=== PATIENT | male | born 1970 | race Caucasian/White ===

== ENCOUNTER 2021-04-13 14:21 | Emergency (ER) | payer BC ==
[2021-04-13 15:10] LABS: Absolute Lymphocytes (CBC) 0.8 K/uL (0.7-4.9); Basophils % 1.1 % (0-1.3); Hematocrit 43.5 % (39.6-49.0); Lymphocytes % 19.8 % (15.3-44.8); RBC Red Blood Cell Count 4.65 M/uL (4.33-5.43)
[2021-04-13 15:18] LABS: Protime INR 1.03
[2021-04-13 15:32] LABS: ALT/SGPT 60 U/L (12-78); AST/SGOT 30 U/L (15-37); Alkaline Phosphatase 93 U/L (45-117); BUN Blood Urea Nitrogen 13 mg/dL (7-18); Bicarbonate 28 mmol/L (21-32); Bilirubin Direct 0.2 mg/dL (0-0.2); Bilirubin Total 0.6 mg/dL (0.2-1.0); Glucose Level 155 mg/dL (74-106); NT PRO-BNP 37 pg/mL (<125); Potassium 3.9 mmol/L (3.5-5.1); Protein, Total 7.5 g/dL (6.4-8.2); Sodium Level 142 mmol/L (136-145); Troponin (Emerg Dept Use Only) < 0.02 ng/mL (0.0-0.045)
[2021-04-13] MEDS ORDERED: MECLIZINE HCL 12.5 MG TAB ONE (16:02)
--- NOTE | 2021-04-13 17:25 | RAD REPORT ---
EXAM DESCRIPTION: CT - Head Brain Wo Cont - 04/13/2021 5:12 pm CLINICAL HISTORY: DIZZINESS, hypertension COMPARISON: No comparisons TECHNIQUE: Axial 5 mm thick images of the head were obtained without IV contrast. All CT scans are performed using dose optimization technique as appropriate and may include automated exposure control or mA/KV adjustment according to patient size. FINDINGS: No intracranial hemorrhage, mass, edema or shift of mid-line structures. No acute infarcti on changes seen. No abnormal extra-axial fluid collections. Ventricles are normal. Mastoid air cells and visualized portions of the paranasal sinuses are clear. No acute bony findings. IMPRESSION: Negative non-contrast CT head examination.
--- NOTE | 2021-04-13 17:27 | RAD REPORT ---
EXAM DESCRIPTION: RAD - Chest Single View - 04/13/2021 3:46 pm CLINICAL HISTORY: CHEST PAIN COMPARISON: May 2012 TECHNIQUE: AP portable chest image was obtained 04/13/2021 3:46 pm . FINDINGS: Exam is limited by portable technique and large body habitus. Lung jo are clear. No failure or volume overload. Interstitial pattern matches comparison. Heart and vasculature are normal. No measurable pleural effusion and no pneumothorax. No acute bony abnorma lity seen. No acute aortic findings suspected. IMPRESSION: No acute cardiopulmonary process. No significant change from comparison study.
--- NOTE | 2021-04-13 17:45 | ER ---
Nurse's Notes [facility] Name: Nathan Dennis Age: 50 yrs Sex: Male : 1970 Arrival Date: 04/13/2021 Time: 14:26 Bed 27 Private MD: Diagnosis: Palpitations;Dizziness and giddiness Presentation: 04/13 14:47 Chief complaint: Patient states: Dizziness that started today, also reports ph palpitations, SOB and chest discomfort, denies N/V. Coronavirus screen: Client denies travel out of the [place] in the last 14 days. At this time, the client does not indicate any symptoms associated with coronavirus-19. Ebola Screen: No symptoms or risks identified at this time. Initial Sepsis Screen: Does the patient meet any 2 criteria? No. Patient's initial sepsis screen is negative. Does the patient have a suspected source of infection? No. Patient's initial sepsis screen is negative. Risk Assessment: Do you want to hurt yourself or someone else? Patient reports no desire to harm self or others. Onset of symptoms was April 13, 2021. 14:47 Method Of Arrival: Ambulatory ph 14:47 Acuity: KEVON 3 ph Triage Assessment: 15:07 Respiratory: Onset: The symptoms/episode began/occurred today, the patient has moderate ap3 shortness of breath. Historical: - Allergies: 14:48 No Known Allergies; ph - Home Meds: 15:07 carvedilol 12.5 mg oral tab 1 tab 2 times per day [Active]; amlodipine 10 mg tab 1 tab ap3 once daily [Active]; - PMHx: 14:48 Hypertension; ph - Immunization history:: Adult Immunizations up to date, Client reports having NOT received the Covid vaccine. - Social history:: Smoking status: Patient denies any tobacco usage or history of. Patient uses alcohol, occasionally. Screenin:03 Abuse screen: Denies threats or abuse. Nutritional screening: No deficits noted. ap3 Tuberculosis screening: No symptoms or risk factors identified. Fall Risk None identified. Assessment: 15:04 General: Appears in no apparent distress. comfortable, Behavior is calm, cooperative, ap3 appropriate for age, patient states he began feeling short of breath and dizzy when he was working at his desk this afternoon. . Pain: Denies pain. Cardiovascular: Capillary refill < 3 seconds. Cardiovascular: Rhythm is regular. Respiratory: Airway is patent Breath sounds are clear bilaterally. Respiratory: Reports shortness of breath at rest Respiratory effort is even, unlabored, Respiratory pattern is regular, symmetrical. GI: No signs and/or symptoms were reported involving the gastrointestinal system. : No signs and/or symptoms were reported regarding the genitourinary system. EENT: No signs and/or symptoms were reported regarding the EENT system. Derm: No signs and/or symptoms reported regarding the dermatologic system. 16:20 Reassessment: Patient and/or family updated on plan of care and expected duration. Pain ap3 level reassessed. Patient is alert, oriented x 3, equal unlabored respirations, skin warm/dry/pink. patients mother and remain at bedside. 16:59 Reassessment: Patient states symptoms have improved. ap3 Vital Signs: 14:47 BP 154 / 80; Pulse 78; Resp 18; Temp 97.9; Pulse Ox 98% on R/A; ph 15:21 BP 132 / 80; Pulse 68; Resp 16; Pulse Ox 98% on R/A; Pain 0/10; ap3 15:43 BP 128 / 75 LA Supine (auto/); Pulse 71; Resp 18; Pulse Ox 99% on R/A; ap3 15:45 BP 148 / 95 LA Sitting (auto/); Pulse 76; Resp 19; Pulse Ox 99% on R/A; Pain 0/10; ap3 15:48 BP 135 / 91 LA Standing (auto/); Pulse 70; Resp 18; Pulse Ox 99% on R/A; Pain 0/10; ap3 17:21 BP 128 / 72; Pulse 65; Resp 16; Pulse Ox 97% on R/A; Pain 0/10; ap3 ED Course: 14:26 Patient arrived in ED. ds1 14:48 Triage completed. ph 14:49 Arm band placed on Patient placed in an exam room, on a stretcher. ph 14:52 Ellen Valiente, RAMBO is Primary Nurse. ap3 15:08 Patient has correct armband on for positive identification. Bed in low position. Call ap3 light in reach. Side rails up X2. Adult w/ patient. court monitor on. Pulse ox on. NIBP on. Door closed. Noise minimized. 15:09 Inserted saline lock: 20 gauge in right antecubital area, using aseptic technique. mt Blood collected. 15:13 Kirk Stevens PA is PHCP. cp 15:13 Stew Lóepz MD is Attending Physician. cp 15:21 Pt visited by mother, . ap3 15:29 Nurse Practitioner and/or Physician Meal Miller to see patient. ap3 15:46 XRAY Chest (1 view) In Process Unspecified. EDMS 17:[address] via wheelchair. ap3 17:12 CT Head Brain wo Cont In Process Unspecified. EDMS 17:16 Patient moved back from CT. ap3 17:44 Brenden Sanchez MD is Referral Physician. cp 18:15 No provider procedures requiring assistance completed. IV discontinued, intact, ap3 bleeding controlled, No redness/swelling at site. Pressure dressing applied. Administered Medications: 15:50 Drug: Meclizine 25 mg Route: PO; ap3 18:07 Follow up: Response: No adverse reaction; Nausea is decreased ap3 Outcome: 17:44 Discharge ordered by MD. cp 18:16 Discharged to home ambulatory, with family. ap3 18:16 Condition: good 18:16 Discharge instructions given to patient, family, Instructed on discharge instructions, follow up and referral plans. medication usage, Demonstrated understanding of instructions, follow-up care, medications, Prescriptions given X 1. 18:17 Patient left the ED. ap3 Signatures: Dispatcher [employer] [facility] Meredith Barron ds1 Jillian Barrios, RN RN Kirk Stevens PA PA cp Thompson, Moriah mt Prokisch, Amanda RN RN ap3
--- NOTE | 2021-04-13 17:45 | EDPHYS ---
Physician Documentation [facility] Name: Nathan Dennis Age: 50 yrs Sex: Male : 1970 Arrival Date: 04/13/2021 Time: 14:26 Bed 27 Private MD: ED Physician Stew López HPI: 04/13 13:30 This 50 yrs old Male presents to ER via Ambulatory with complaints of cp Shortness Of Breath, Dizziness. 13:30 The patient presents with a history of heart skipping beats. cp 13:30 Context: The symptoms occur while seated at computer desk. Onset: The symptoms/episode cp began/occurred today. Duration: The patient or guardian reports a single episode, that is now resolved. The patient presents with feeling faint, lightheadedness. Associated signs and symptoms: Pertinent negatives: abdominal pain, blurred vision, chest pain, confusion, diaphoresis, focal weakness, numbness, syncope. Severity of symptoms: in the emergency department the symptoms have improved markedly. Patient's baseline: Neuro: alert and fully oriented, Motor: no deficits, Ambulation: walks without assistance, Speech: normal. Patient denies any chest pain and reports working outside earlier today with no complaints of chest pain, dizziness, and/or palpitations. Historical: - Allergies: 14:48 No Known Allergies; ph - Home Meds: 15:07 carvedilol 12.5 mg oral tab 1 tab 2 times per day [Active]; amlodipine 10 mg tab 1 tab ap3 once daily [Active]; - PMHx: 14:48 Hypertension; ph - Immunization history:: Adult Immunizations up to date, Client reports having NOT received the Covid vaccine. - Social history:: Smoking status: Patient denies any tobacco usage or history of. Patient uses alcohol, occasionally. ROS: 13:35 Constitutional: Negative for body aches, chills, fever, poor PO intake. cp 13:35 Eyes: Negative for injury, pain, redness, and discharge. cp 13:35 ENT: Negative for ear pain, sore throat, difficulty swallowing, difficulty handling secretions. 13:35 Cardiovascular: Positive for palpitations, Negative for chest pain, edema. 13:35 Respiratory: Positive for shortness of breath, Negative for cough, wheezing. 13:35 Abdomen/GI: Negative for abdominal pain, nausea, vomiting, and diarrhea. 13:35 Neuro: Positive for dizziness, Negative for altered mental status, headache, syncope, weakness. 13:35 All other systems are negative. Exam: 13:40 Constitutional: The patient appears in no acute distress, alert, awake, cp non-diaphoretic, non-toxic, well developed, well nourished. 13:40 Head/Face: Normocephalic, atraumatic. cp 13:40 Eyes: Periorbital structures: appear normal, Pupils: equal, round, and reactive to light and accomodation, Extraocular movements: intact throughout, Conjunctiva: normal, no exudate, no injection, Sclera: no appreciated abnormality, Lids and lashes: appear normal, bilaterally. 13:40 ENT: External ear(s): are unremarkable, Ear canal(s): cerumen impaction, that is moderate, occluding the right ear canal, TM's: Examination of the other ear shows no obvious abnormality, Nose: is normal, Mouth: is normal, Posterior pharynx: Airway: no evidence of obstruction, patent. 13:40 Neck: ROM/movement: is normal, is supple, without pain, no range of motions limitations. 13:40 Chest/axilla: Inspection: normal, Palpation: is normal, no crepitus, no tenderness. 13:40 Cardiovascular: Rate: normal, Rhythm: regular, Heart sounds: murmur, not appreciated, Edema: is not appreciated, JVD: is not appreciated. 13:40 Respiratory: the patient does not display signs of respiratory distress, Respirations: normal, no use of accessory muscles, no retractions, labored breathing, is not present, Breath sounds: are clear throughout, no decreased breath sounds, no stridor, no wheezing. 13:40 Abdomen/GI: Inspection: abdomen appears normal, Palpation: abdomen is soft and non-tender, in all quadrants. 13:40 Neuro: Orientation: to person, place \T\ time. Mentation: is normal, Cerebellar function: is grossly normal, Motor: moves all fours, strength is normal, Sensation: is normal. 15:00 ECG was reviewed by the Attending Physician. cp Vital Signs: 14:47 BP 154 / 80; Pulse 78; Resp 18; Temp 97.9; Pulse Ox 98% on R/A; ph 15:21 BP 132 / 80; Pulse 68; Resp 16; Pulse Ox 98% on R/A; Pain 0/10; ap3 15:43 BP 128 / 75 LA Supine (auto/); Pulse 71; Resp 18; Pulse Ox 99% on R/A; ap3 15:45 BP 148 / 95 LA Sitting (auto/); Pulse 76; Resp 19; Pulse Ox 99% on R/A; Pain 0/10; ap3 15:48 BP 135 / 91 LA Standing (auto/); Pulse 70; Resp 18; Pulse Ox 99% on R/A; Pain 0/10; ap3 17:21 BP 128 / 72; Pulse 65; Resp 16; Pulse Ox 97% on R/A; Pain 0/10; ap3 MDM: 15:33 Patient medically screened. 17:43 Data reviewed: vital signs, nurses notes, lab test result(s), EKG, radiologic studies, cp CT scan, plain films. 17:43 Test interpretation: by ED physician or midlevel provider: ECG, plain radiologic cp studies. Counseling: I had a detailed discussion with the patient and/or guardian regarding: the historical points, exam findings, and any diagnostic results supporting the discharge/admit diagnosis, lab results, radiology results, the need for outpatient follow up, a food and beverage intern, to return to the emergency department if symptoms worsen or persist or if there are any questions or concerns that arise at home. 04/13 14:53 Order name: Basic Metabolic Panel; Complete Time: 15:55 ap3 04/13 15:55 Interpretation: Normal except: CL 109; GLUC 155; GFR 74. 04/13 14:53 Order name: CBC with Diff; Complete Time: 15:55 ap3 04/13 16:48 Interpretation: Normal except: WBC 4.00. 04/13 14:53 Order name: LFT's; Complete Time: 15:55 ap3 04/13 16:48 Interpretation: Reviewed. 04/13 14:53 Order name: Magnesium; Complete Time: 15:55 ap3 04/13 14:53 Order name: NT PRO-BNP; Complete Time: 15:55 ap3 04/13 14:53 Order name: PT-INR; Complete Time: 15:55 ap3 04/13 14:53 Order name: Troponin (emerg Dept Use Only); Complete Time: 15:55 ap3 04/13 16:49 Interpretation: Within normal limits: TROPED < 0.02. 04/13 14:53 Order name: XRAY Chest (1 view); Complete Time: 17:30 ap3 04/13 17:30 Interpretation: Report review. 04/13 14:53 Order name: EKG; Complete Time: 14:54 ap3 04/13 14:53 Order name: Cardiac monitoring; Complete Time: 15:02 ap3 04/13 14:53 Order name: EKG - Nurse/Tech; Complete Time: 15:02 ap3 04/13 14:53 Order name: IV Saline Lock; Complete Time: 15:02 ap3 04/13 15:34 Order name: CT Head Brain wo Cont; Complete Time: 17:30 cp 04/13 17:31 Interpretation: Report reviewed. 04/13 14:53 Order name: Labs collected and sent; Complete Time: 15:02 ap3 04/13 14:53 Order name: O2 Per Protocol; Complete Time: 15:02 ap3 04/13 14:53 Order name: O2 Sat Monitoring; Complete Time: 15:02 ap3 04/13 15:33 Order name: Orthostatics; Complete Time: 16:17 cp EC:00 Rate is 71 beats/min. Rhythm is regular. CO interval is normal. QRS interval is cp prolonged at 114 msec. QT interval is normal. T waves are Inverted in lead aVR. Interpreted by me. Reviewed by me. Administered Medications: 15:50 Drug: Meclizine 25 mg Route: PO; ap3 18:07 Follow up: Response: No adverse reaction; Nausea is decreased ap3 Disposition: 04/13/21 17:44 Discharged to Home. Impression: Palpitations, Dizziness and giddiness. - Condition is Stable. - Discharge Instructions: Dizziness, Holter Monitoring, Palpitations. - Prescriptions for Meclizine 25 mg Oral Tablet - take 1 tablet by ORAL route every 8 hours As needed; 30 tablet. - Medication Reconciliation Form, Thank You Letter, Antibiotic Education, Prescription Opioid Use form. - Follow up: Brenden Sanchez MD; When: 2 - 3 days; Reason: Recheck today's complaints. - Problem is new. - Symptoms have improved. Signatures: Dispatcher [employer] EDJillian Nova RN RN ph Page, Kirk, PA PA cp Ellen Valiente, RN RN ap3 Corrections: (The following items were deleted from the chart) 18:17 17:44 04/13/2021 17:44 Discharged to Home. Impression: Palpitations; Dizziness and ap3 giddiness. Condition is Stable. Forms are Medication Reconciliation Form, Thank You Letter, Antibiotic Education, Prescription Opioid Use. Follow up: Brenden Sanchez; When: 2 - 3 days; Reason: Recheck today's complaints. Problem is new. Symptoms have improved. cp
[2021-04-13 18:39] VITALS: TEMP 97.9
[2021-04-13 18:48] VITALS: BP 128/72; O2SAT 97
--- NOTE | 2021-04-14 07:52 | EKG ---
Test Date: 2021-04-13 Test Time: 14:50:40 Plant Accountant: CECILIO MEASUREMENT RESULTS: Intervals: Rate: 71 LA: 150 QRSD: 114 QT: 394 QTc: 428 [place]: P: 7 LA: 150 QRS: 46 T: 29 INTERPRETIVE STATEMENTS: Normal sinus rhythm Low voltage QRS Cannot rule out Anterior infarct, age undetermined Abnormal ECG Compared to ECG 05/15/2012 09:47:27 Low QRS voltage now present Myocardial infarct finding now present Electronically Signed On 04-14-21 07:50:37 CDT by Brenden Sanchez
== END 2021-04-13 18:17 | disposition home or self-care (01) ==
LOC: ER 14:21
DX: R00.2 Palpitations (principal); I10 Essential (primary) hypertension
CPT/HCPCS: 36415; 70450; 71045; 80048; 80076; 83735; 83880; 84484; 85025; 85610; 93005; 99285

== ENCOUNTER 2023-05-26 22:59 | Emergency (ER) | payer BC ==
--- OUTSIDE RECORDS SUMMARY | 2023-05-26 23:02 | XMS REPORT | Continuity of Care Document ---
:1970 Author Organization [facility] t Address [address] [facility] [address] [place] [address] Care Team Providers Name Role Phone Atiya BARROSO, Prieto Alexis Primary Care Physician Antione Alejandro MD Attending Clinician [phone] Antione Alejandro Attending Clinician Unavailable Antione Alejandro Admitting Clinician Unavailable Payers Payer Name Policy Type Policy Number Effective Date Expiration Date S ource Problems This patient has no known problems. Allergies, Adverse Reactions, Alerts Allergy Allergy Status Severity Reaction(s) Onset Inactive Treating Comm ents Source Name Type Date Date Clinician No Known DA Active U [facility] Allergie 6-13 Clear s 00:00: Winn 00 [facility] Social History Social Habit Start Date Stop Date Quantity Comments Source Gender identity [facility] Sex Assigned At [birth year] [facility] 00:00:00 00:00:00 Smoking Status Start Date Stop Date Source Tobacco smoking consumption unknown [facility] Medications This patient has no known medications. Procedures Procedure Date / Time Performed Performing Clinician Sourc e XR CERVICAL SPINE 2 OR 2023-05-14 20:22:00 Antione Alejandro [facility] 3 [facility] Cristi Plan of Care Planned Activity Planned Date Details Comments Source Future Scheduled 2023-05-14 Screening for [facility] Test 16:41:22 malignant neoplasm of colon (procedure) [code = 350086940] Future Scheduled 2023-05-14 Screening for [facility] Test 16:41:22 malignant neoplasm of colon (procedure) [code = 058170503] Future Scheduled 2023-05-14 Screening for [facility] Test 16:41:22 malignant neoplasm of colon (procedure) [code = 759942382] Future Scheduled 2023-05-14 COVID-19 VACCINE [facility] 16:41:22 (#1) [code = COVID-19 VACCINE (#1)] Future Scheduled 2023-05-14 [facility] 16[facility]22 screening (procedure) [code = 393823938] Future Scheduled 2023-05-14 Screening for [facility] Test 16:41:22 malignant neoplasm of colon (procedure) [code = 767107716] Future Scheduled 2023-05-14 Screening for [facility] Test 16:41:22 malignant neoplasm of colon (procedure) [code = 217163696] Future Scheduled 2023-05-14 SHINGLES VACCINES [facility] 16:41:22 (1 of 2) [code = SHINGLES VACCINES (1 of 2)] Future Scheduled 2023-05-14 INFLUENZA VACCINE [facility] Test 16:41:22 [code = INFLUENZA VACCINE] Encounters Start End Encounter Admission Attending Care Care Encounter Source Date/Time Date/Time Type Type Clinicians Facility Department ID 2023-05-14 2023-05-14 Hospital [facility], 1.2.840.1 [id number] [facility] 15:00:00 23:59:00 Encounter Antione [id number] 957 [address] Cristi 3.430.2.7 Hospi ta .[id number] l .8 2023-05-14 2023-05-14 Transcribe [facility], 1.2.840.1 [id number] [facility] 00:00:00 00:00:00 Orders Antione [id number] Crist[place] 3.430.2.7 Hospi ta .[id number] l .8 2023-05-14 2023-05-14 Outpatient LEOLA, [facility] [id number] [place] 00:00:00 00:00:00 ANTIONE [address] 2023-05-01 2023-05-01 Outpatient UVALDO AlejandroCL LABO [id number] [facility] 15:51:00 15:51:00 Antione 42 [facility] 2023-05-01 2023-05-01 Outpatient EL Leola HCATO SURG [id number] [facility] 06:06:00 06:06:00 Antione [facility] Results Test Description Test Time Test Comments Results Result Comments Source BASIC METABOLIC PANEL 2023-04-25 18:44:00 Test Item Value Reference Range Interpretation Comme nts SODIUM (test code = NA) 144 mmol/L 136-145 N POTASSIUM (test code = K) 4.0 mmol/L 3.5-5.1 N CHLORIDE (test code = CL) 105.0 mmol/L 98-107 N CARBON DIOXIDE (test code = 28.6 mmol/L 21-32 N CO2) GLUCOSE (test code = GLU) 131 mg/dL 70-110 H BLOOD UREA NITROGEN (test 23 mg/dL 7-18 H code = BUN) GLOMERULAR FILTRATION RATE 87.9 >60 T he Glomerular Filtration Rate (test code = GFR) is a calcu lated parameterbased on serum Creati nine, patient age and sex. GFR va luesless than 60 mL/min/1.73 squ are meters are indicative ofCh ronic Kidney Disease. Values less than 15 mL/min/1.73squa re meters indicate Kidney failure. The calculation for GFR is based on the CKD-EPI (20 21) calculation. This formulais race indifferent and is the preet mmended formula for GFRby the [facility] for Adults.The GFR will not calcul ate if the sex is unknown or if t hepatient's age is <18 years. CREATININE (test code = 1.02 mg/dL 0.55-1.30 N CREAT) CALCIUM (test code = CA) 8.9 mg/dL 8.2-10.1 N HEPATIC FUNCTION [id number] 18:44:00 Test Item Value Reference Range Interpretation Comments TOTAL PROTEIN (test code = PROT) 6.8 g/dL 6.4-8.2 N ALBUMIN (test code = ALB) 4.2 g/dL 3.4-5.0 N GLOBULIN (test code = GLOB) 2.6 g/dL 2.2-4.2 N BILIRUBIN TOTAL (test code = BILT) 0.70 mg/dL 0.2-1.00 N BILIRUBIN DIRECT (test code = 0.20 mg/dL 0-0.2 N BILD) SGOT/AST (test code = AST) 23.0 U/L 15-37 N SGPT/ALT (test code = ALT) 38.0 U/L 12-78 N ALKALINE PHOSPHATASE TOTAL (test 70 U/L 46-116 N code = ALKP) ALBUMIN/GLOBULIN RATIO (test code 1.6 0.7-2.0 N = A/G) PROTHROMBIN [id number] 18:13:00 Test Item Value Reference Range Interpretation Comments PROTHROMBIN TIME 13.3 secs 9.4-12.5 H Please note new normal PATIENT (test code = range. PTP) INTERNATIONAL NORMAL 1.18 <2.0 RECOMME NDED THERAPEUTIC RATIO (test code = RANGE FOR ORAL INR) ANTICOAGULANTTR EATMENT: CONDITION INRPr ophylaxis of venous throm bosis in 2.0 - 3.0 high- risk medical or surg ical patientsTreatme nt of venous thrombos is 2.0 - 3.0Prevention o f embolism 2.0 - 3.0Prevention o f recurrent embol ism, or 3.0 - 4.5 patie nts with mechanical pros thetic intravascular v donaldson IS PATIENT ON ANTICOAGULANTS ? [facility] been notified if Patient is on Heparin Drip? NOTHROMBOPLASTIN TIME [id number] 18:13:00 Test Item Value Reference Range Interpretation Comments PTT ACTIVATED (test 28.0 secs 25.1-36.5 N Please n ote new code = APTT) normal range. IS PATIENT ON ANTICOAGULANTS ? [facility] been notified if Patient is on Heparin Drip? NOCBC W/AUTO [id number] 17:39:00 Test Item Value Reference Range Interpretation Comments WHITE BLOOD CELL (test code = WBC) 4.0 K/mm3 5.7-10.5 L RED BLOOD CELL (test code = RBC) 3.94 M/mm3 4.2-5.4 L HEMOGLOBIN (test code = HGB) 12.0 g/dL 12-16 N HEMATOCRIT (test code = HCT) 34.8 % 37-47 L MEAN CELL VOLUME (test code = MCV) 88 fL 80-98 N MEAN CELL HGB (test code = MCH) 30.5 pg 27-34 N MEAN CELL HGB CONCENTRATION (test 34.5 g/dL 30.8-34.1 H code = MCHC) RED CELL DISTRIBUTION WIDTH (test 16.4 % 11-16 H code = RDW) PLT (test code = PLT) 166 K/mm3 130-400 N MEAN PLATELET VOLUME (test code = 10.6 fL 8.9-12.1 N MPV) NEUTROPHIL % (test code = NT%) 56.8 % 45-70 N LYMPHOCYTE % (test code = LY%) 31.1 % 20-40 N MONOCYTE % (test code = MO%) 9.5 % 3-10 N EOSINOPHIL % (test code = EO%) 1.8 % 1-5 N BASOPHIL % (test code = BA%) 0.5 % 0.0-1.1 N NEUTROPHIL # (test code = NT#) 2.27 K/mm3 2.00-7.50 N LYMPHOCYTE # (test code = LY#) 1.24 K/mm3 1.50-4.00 L MONOCYTE # (test code = MO#) 0.38 K/mm3 0.2-0.8 N EOSINOPHIL # (test code = EO#) 0.07 K/mm3 0.04-0.4 N BASOPHIL # (test code = BA#) 0.02 K/mm3 0.02-0.10 N MANUAL DIFF REQUIRED (test code = NO MANUAL DIFF MDIFF) NUCLEATED RED BLOOD CELL (test 0 % 0-0 N code = NRBC) Notes Date/Time Note Provider Source 2023-05-01 06:56:00-00:00 [facility] ([facility]) DT Operative Note REPORT#:[id number] REPORT STATUS: Signed DATE:05/01/23 TIME: 655 PATIENT: DANIEL SHEPARD IV UNIT #: [id number] ROOM/BED: : 69 AGE: 52 SEX: M ATTEND: Piyush Alejandro MD ADM AUTHOR: Antione Alejandro MD * ALL edits or amendments must be made on the el [employer]/computer document * Operative Report Operative Note Note: OPERATIVE DICTATION DATE OF SURGERY: 05/01/2023 PRE-OPERATIVE DIAGNOSIS: Left C7 radiculopathy POST OPERATIVE DIAGNOSIS: Left C7 radiculopathy NAME OF PROCEDURE: 1) C6-7 a nterior cervical discectomy and fusion; 2) Anterior cervical instrumentation/plating (2 vert ebral levels); 3) Interbody graft/cage placement; 4) Use of operative microscope for mi crodissection SURGEON: Antione Alejandro MD ASSISTANTS: JEWEL Yang ANESTHESIA TYPE: GETA FINDINGS: Cervical disc herniation with resultan t stenosis SPECIMENS REMOVED: None EBL:25 cc FLUIDS: see Anesthesia record BLOOD PRODUCTS: see Anesthesia record OUTPUT: see Anesthesia record COMPLICATIONS: None DISPOSITION/CONDITION: Extubated/stable to PACU IMPLANTS: [place] [id number] (7 degree) [place] anterior cervical plte - 18mm Anterior cervical screws - 4.0x16mm (x2); 4.0x14 mm (x2) JUSTIFICATION FOR PROCEDURE: Patient is a pleasant 52 year old man wi th a left C6-7 HNP with severe left C7 radiculopathy refractory to all conservative man agement with a transient response to a targeted left C6-7 NRB. After discussion of risks, benefits, and alternatives including but not limited to bl eeding, pain, infection, scarring, injury to neural elements with resulta nt weakness/numbness/ incontinence/paralysis, spin al fluid leak, need for further surgery, persistent symptoms, dysphagia, hoarsen ess of voice, neck hematoma or vascular injury, and risk of general anesthesia the patient agreed to proceed with surgery and informed consent was obtained. PROCEDURE IN DETAIL: The patient was taken to e operating room where a time out was performed according to hospital protocol . Lines and monitors were placed by the anesthesia t eam and nursing staff. Neuromonitoring leads were placed by the Neuromonitoring team. T he patient was placed under general anesthesia and intubated by the anesthesia team. A small shoulder bump was placed in beneath the scapula, and the head was placed in a donut. Preoperative fluoroscopy was used to identify the appropriate disk space - this was marked with a surgical marker. Following universal timeout, the patient's neck was prepped and draped in usual sterile fashion. The skin was opened then sharply in a transverse manner across the skin c rease with a #10 blade. Subcutaneous dissection was carried out with mon opolar cautery. The platysma was sharply dissected in a transverse f ashion with Metzenbaum scissors and hemostasis was obtained with bipola r cautery. An avascular plane was then developed medial to the carotid s jaswant and lateral to the hypopharynx with Metzenbaum scissors. Clowards w ere then used to identify the prevertebral fascia, which was then cleared of all soft tissue using blunt dissection. Spinal needle was placed in the presumed C6-7 disk space, and this was confirmed with lat eral fluoroscopy. The longus colli were then elevated bilaterally with the us e of Bovie cautery, and a self-retaining retractor was then deployed. Following this, the drill wa s used to drill off the anterior osteophytes at the level of interest. Next appropriately sized Demorest pins were then p laced in the cephalad, intervening, and caudal vertebral bodies under direct fluoroscopic guidance. Gentle distraction was placed across the C6-7 disk space, and an annulotomy was perfo rmed with a #15 blade. A straight curette was then used to elevate the ca rtilaginous endplate off the bony endplates to the depth of the disk spac e. Disk was removed with the use of 1- and 2-mm Kerrison rongeurs and pituitary rongeurs. The posterior osteophytectomy was then performed with the use of a 3-mm matchstick drill bit and 2-mm Kerrison rongeurs. A nerve hook was then used to slide under the posterior longitudinal ligament. Remaining disc fragments, an nulus, and posterior longitudinal ligament were then resected to the joints bilat erally. The nerve hook was then used to freely pass over both foramen. The endplates were then prepped for fusion with the use of the drill. Meticulous hemostasis was then obtained in the i ntervertebral spaces using Floseal irrigant and gentle tamponade. Next, an appropriately sized trial was then gently malleted into place in each interver tebral space. At each level, appropriate size and placement was then confirme d with lateral fluoroscopy. Autograft saved from drilling of the endplates w as used to pack each titanium graft. Once this was done, interbody graft were then hammered into place an d slightly countersunk at each level. The Demorest p ins were removed and bone wax smeared into the pin holes. An appropriate size anterior cervical plate was then placed over the disk space. Placement was c onfirmed under lateral fluoroscopy and the plate secured using temporar y pins. Next, under AP fluoroscopy the orientation of the plate was assessed. Using this information, final adjustments were made and maintained with the temporary pins. Under lateral fluoroscopy, transport pilot holes were dril led using hand drills of increasing size in the open plate apertures. These transport pilot holes were followed by appropriately sized screws, drilled into place u nder lateral fluoroscopy. The temporary pins were then removed and, in similar fashion, the remaining plate apertures were hand drilled and appropriately si zed screws placed, all under lateral fluoroscopy. All screws were torque tigh tened and the plate locking mechanisms deployed to constitute the anterior c ervical fixation. AP and lateral fluoroscopy confirmed excellent placemen t of the hardware. Self-retaining retractors were removed, and the microscope was brought out of place. The wound was flooded with bacitracin irrigation . All small bleeders were coagulated with bipolar cautery. T he subcutaneous tissue was then closed with 3-0 Vicryl, including the p latysma. The skin was closed with 4-0 Monocryl, followed by glue and a dhesive strips. Sterile dressing was then placed over the incisi on. At the conclusion of the case, all counts were c orrect x2. The patient was then extubat ed and transferred to the PACU in stable condition. Electronically Signed by Antione Alejandro MD on 0 05/01/23 at [address] [facility] #:[id number] END OF REPORT 2023-04-24 17:00:00-00:00 [id number] [place] [id number] PATIENT NAME: DANIEL SHEPARD IV ADMIT DA TE: ACCOUNT NO: [id number] ROOM NO: AGE: 52 REPORT TYPE: ELECTROCARDIOGRAM SEX: M ADMITTING PHYSICIAN: ATTENDING PHYSICIAN:Antione Alejandro MD Order: [id number] Test Reason : PRE OP CLEARANCE HTN Test Date/Time Stamp: SunApr 24 2023 17:00:19 Blood Pressure : / mmHG Vent. Rate : 061 BPM Atrial Rate : 061 BPM P-R Int : 194 ms QRS Dur : 114 ms QT Int : 398 ms P-R-T Axes : -07 053 027 degree s QTc Int : 400 ms Normal sinus rhythm Normal ECG No previous ECGs available Confirmed by GUCCI VALDOVINOS MD ([id number]) on 04/27/2023 6:17:12 PM Referred By: Antione Alejandro Confirmed by:GUCCI VALDOVINOS MD PATIENT NAME: DANIEL SHEPARD MAKI
[2023-05-27 00:38] LABS: Absolute Lymphocytes (CBC) 1.3 K/uL (0.7-4.9); Hematocrit 39.8 % (39.6-49.0); MCV 89.4 fL (80-100); RBC Red Blood Cell Count 4.45 M/uL (4.33-5.43)
[2023-05-27 00:58] LABS: Bilirubin Direct 0.1 mg/dL (0-0.2); Bilirubin Indirect, Calculated 0.5 mg/dL (0.2-0.8); Bilirubin Total 0.6 mg/dL (0.2-1.0); Magnesium 2.1 mg/dL (1.6-2.4); Potassium 3.8 mEq/L (3.5-5.1); Protein, Total 7.1 g/dL (6.4-8.2); Troponin High Sensitivity 4.6 pg/mL (<58.9)
--- NOTE | 2023-05-27 01:21 | EDPHYS ---
Physician Documentation [facility] Name: Nathan Dennis Age: 52 yrs Sex: Male : 1970 Arrival Date: 05/26/2023 Time: 22:59 Bed 18 Private MD: ED Physician Nikita Davis HPI: 05/26 23:55 This 52 yrs old Male presents to ER via Ambulatory with complaints of Stiff Neck, rt Shoulder Pain, Dizziness. 23:55 Patient had an ACDF performed on 620. The patient states that about 2 weeks following rt that, he had started having intermittent palpitations. He does have a stress test scheduled in the office because of the symptoms. The patient states that today, he had a brief episode of disorientation that is since resolved. He states that he has had intermittent chest tightness but denies of chest pain. States that he has no pain currently. Patient denies other acute complaints at this time, symptoms are moderate severity, no other aggravating or alleviating factors.. Historical: - Allergies: 23:14 No Known Allergies; kd3 - PMHx: 23:14 Hypertension; kd3 - Immunization history:: Adult Immunizations up to date. - Social history:: Smoking status: Patient denies any tobacco usage or history of. - Family history:: not pertinent. ROS: 23:55 Constitutional: Negative for fever, chills, and weight loss, Cardiovascular: Negative rt for chest pain, palpitations, and edema, Respiratory: Negative for shortness of breath, cough, wheezing, and pleuritic chest pain, Abdomen/GI: Negative for abdominal pain, nausea, vomiting, diarrhea, and constipation, Skin: Negative for injury, rash, and discoloration, Neuro: Negative for headache, weakness, numbness, tingling, and seizure, Psych: Negative for depression, anxiety, suicide ideation, homicidal ideation, and hallucinations. 23:55 Cardiovascular: Positive for palpitations, Negative for chest pain. Exam: 23:55 Constitutional: This is a well developed, well nourished patient who is awake, alert, rt and in no acute distress. Head/Face: Normocephalic, atraumatic. Chest/axilla: Normal chest wall appearance and motion. Nontender with no deformity. No lesions are appreciated. Cardiovascular: Regular rate and rhythm with a normal S1 and S2. No gallops, murmurs, or rubs. Normal PMI, no JVD. No pulse deficits. Respiratory: Lungs have equal breath sounds bilaterally, clear to auscultation and percussion. No rales, rhonchi or wheezes noted. No increased work of breathing, no retractions or nasal flaring. Abdomen/GI: Soft, non-tender, with normal bowel sounds. No distension or tympany. No guarding or rebound. No evidence of tenderness throughout. Skin: Warm, dry with normal turgor. Normal color with no rashes, no lesions, and no evidence of cellulitis. MS/ Extremity: Pulses equal, no cyanosis. Neurovascular intact. Full, normal range of motion. Neuro: Awake and alert, GCS 15, oriented to person, place, time, and situation. Cranial nerves II-XII grossly intact. Motor strength 5/5 in all extremities. Sensory grossly intact. Cerebellar exam normal. Normal gait. Psych: Awake, alert, with orientation to person, place and time. Behavior, mood, and affect are within normal limits. 23:55 ECG was reviewed by the Attending Physician. Vital Signs: 23:12 Pulse 71; Resp 16; Temp 97.7(O); Pulse Ox 100% ; Weight 127.46 kg; Height 6 ft. 0 in. ; kd3 23:17 BP 124 / 81; kd3 23:45 BP 136 / 100; Pulse 62; Resp 20 S; Pulse Ox 98% on R/A; ha1 05/27 00:29 BP 112 / 70; Pulse 65; Resp 18 S; Pulse Ox 98% on R/A; ha1 01:30 BP 118 / 71; Pulse 61; Resp 15 S; Pulse Ox 98% on R/A; ha1 05/26 23:12 Body Mass Index 38.11 (127.46 kg, 182.88 cm) kd3 MDM: 05/26 23:33 Patient medically screened. rt 05/27 01:21 Differential diagnosis: Dysrhythmia, electrolyte disturbance, thyrotoxicosis, rt dehydration, acute coronary syndrome. Data reviewed: vital signs. Consideration of Admission/Observation Escalation of care including admission/observation considered. Given chronicity of symptoms with negative troponin, 1 set of enzymes is sufficient to rule out any acute coronary syndrome. Test considered but Not performed: CT: Symptoms are not consistent with a pulmonary embolism, CT angiogram not indicated. Care significantly affected by the following chronic conditions: Hypertension. Counseling: I had a detailed discussion with the patient and/or guardian regarding: the historical points, exam findings, and any diagnostic results supporting the discharge/admit diagnosis, lab results, radiology results, the need for outpatient follow up. 05/26 23:43 Order name: Basic Metabolic Panel; Complete Time: 01:10 rt 05/26 23:43 Order name: CBC with Diff; Complete Time: : rt 05/26 23:43 Order name: LFT's; Complete Time: : rt 05/26 23:43 Order name: Magnesium; Complete Time: : rt 05/26 23:43 Order name: Troponin HS; Complete Time: : rt 05/26 23:48 Order name: TSH; Complete Time: : rt 05/26 23:43 Order name: XRAY Chest (1 view) rt 05/26 23:43 Order name: EKG; Complete Time: 23:44 rt 05/26 23:43 Order name: Cardiac monitoring; Complete Time: 00:08 rt 05/26 23:43 Order name: EKG - Nurse/Tech; Complete Time: 00:08 rt 05/26 23:43 Order name: IV Saline Lock; Complete Time: 00:28 rt 05/26 23:43 Order name: Labs collected and sent; Complete Time: 00:28 rt 05/26 23:43 Order name: O2 Per Protocol; Complete Time: 00:08 rt 05/26 23:43 Order name: O2 Sat Monitoring; Complete Time: 00:08 rt EC/15 23:55 Rate is 63 beats/min. Rhythm is regular, Normal Sinus Rhythm with No ectopy. QRS Archer rt is Normal. CA interval is normal. QRS interval is normal. QT interval is normal. No Q waves. T waves are Normal. No ST changes noted. Interpreted by me. Administered Medications: No medications were administered Disposition Summary: 05/27/23 01:20 Discharge Ordered Location: Home rt Problem: new rt Symptoms: have improved rt Condition: Stable rt Diagnosis - Palpitations rt Followup: rt - With: Private Physician - When: 2 - 3 days - Reason: Discharge Instructions: - Discharge Summary Sheet rt - Palpitations rt Forms: - Medication Reconciliation Form rt - Thank You Letter rt - Antibiotic Education rt - Prescription Opioid Use rt - Patient Portal Instructions rt Signatures: [facility] Ramona Noonan RN RN kd3 Nikita Davis MD MD rt
--- NOTE | 2023-05-27 01:21 | ER ---
Nurse's Notes [facility] Name: Nathan Dennis Age: 52 yrs Sex: Male : 1970 Arrival Date: 05/26/2023 Time: 22:59 Bed 18 Private MD: Diagnosis: Palpitations Presentation: 05/26 23:14 Coronavirus screen: Vaccine status: Patient reports receiving the 2nd dose of the covid kd3 vaccine. Ebola Screen: No symptoms or risks identified at this time. Initial Sepsis Screen: Does the patient meet any 2 criteria? No. Patient's initial sepsis screen is negative. Does the patient have a suspected source of infection? No. Patient's initial sepsis screen is negative. Risk Assessment: Do you want to hurt yourself or someone else? Patient reports no desire to harm self or others. Onset of symptoms was May 26, 2023. 23:14 Method Of Arrival: Ambulatory kd3 23:15 Chief complaint: Patient states: My neck and back feels tight. 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 I feel worried. I do not feel chest pain but i feel dizzy. On 05/01 i have surgery of C5 and C6. I am not sure what is going on but i have been feeling like this for a couple of weeks. 23:15 Acuity: KEVON 3 kd3 Triage Assessment: 23:14 General: Appears uncomfortable, Behavior is calm, cooperative. Pain: Complains of pain kd3 in back and neck. Neuro: Level of Consciousness is awake, alert, obeys commands, Oriented to person, place, time, situation. Neuro: Reports dizziness. Respiratory: Airway is patent Trachea midline Respiratory effort is even, unlabored, Respiratory pattern is regular, symmetrical. Historical: - Allergies: 23:14 No Known Allergies; kd3 - PMHx: 23:14 Hypertension; kd3 - Immunization history:: Adult Immunizations up to date. - Social history:: Smoking status: Patient denies any tobacco usage or history of. - Family history:: not pertinent. Screenin:17 [facility] ED Fall Risk Assessment (Adult) History of falling in the last 3 months, ha1 including since admission No falls in past 3 months (0 pts) Confusion or Disorientation No (0 pts) Intoxicated or Sedated No (0 pts) Impaired Gait No (0 pts) Mobility Assist Device Used No (0 pt) Altered Elimination No (0 pt) Score/Fall Risk Level 0 - 2 = Low Risk Oriented to surroundings, Maintained a safe environment, Educated pt \T\ family on fall prevention, incl call for assistance when getting out of bed. Abuse screen: Denies threats or abuse. Denies injuries from another. Nutritional screening: No deficits noted. Tuberculosis screening: No symptoms or risk factors identified. Assessment: 23:17 General: Appears comfortable, Behavior is calm, cooperative. Pain: Complains of pain in ha1 neck Pain radiates to back Pain Quality of pain is described as pressure, throbbing, Pain began suddenly. Neuro: Level of Consciousness is awake, alert, obeys commands, Oriented to person, place, time, situation. Cardiovascular: Patient's skin is warm and dry. Cardiovascular: Heart tones S1 S2 present. Respiratory: Airway is patent Respiratory effort is even, unlabored, Respiratory pattern is regular, symmetrical. GI: No signs and/or symptoms were reported involving the gastrointestinal system. Abdomen is round non-distended, obese. : No signs and/or symptoms were reported regarding the genitourinary system. Musculoskeletal: Circulation, motion, and sensation intact. Range of motion: intact in all extremities, Reports pain in neck and back. 05/27 00:15 Reassessment: Patient and/or family updated on plan of care and expected duration. Pain ha1 level reassessed. Patient is alert, oriented x 3, equal unlabored respirations, skin warm/dry/pink. Vital Signs: 05/26 23:12 Pulse 71; Resp 16; Temp 97.7(O); Pulse Ox 100% ; Weight 127.46 kg; Height 6 ft. 0 in. ; kd3 23:17 BP 124 / 81; kd3 23:45 BP 136 / 100; Pulse 62; Resp 20 S; Pulse Ox 98% on R/A; ha1 05/27 00:29 BP 112 / 70; Pulse 65; Resp 18 S; Pulse Ox 98% on R/A; ha1 01:30 BP 118 / 71; Pulse 61; Resp 15 S; Pulse Ox 98% on R/A; ha1 05/26 23:12 Body Mass Index 38.11 (127.46 kg, 182.88 cm) 3 ED Course: 05/26 23:11 Patient arrived in ED. ja2 23:15 Arm band placed on right wrist. kd3 23:17 Triage completed. kd3 23:17 Patient has correct armband on for positive identification. Bed in low position. Call ha1 light in reach. Side rails up X 1. Adult w/ patient. 23:18 Nikita Davis MD is Attending Physician. rt 23:52 Tanya Chiang, RN is Primary Nurse. ha1 23:57 XRAY Chest (1 view) In Process Unspecified. EDWY 05/27 00:27 Inserted saline lock: 20 gauge in left upper arm, using aseptic technique. Blood oe collected. 00:28 Basic Metabolic Panel Sent. ha1 00:28 CBC with Diff Sent. ha1 00:28 LFT's Sent. ha1 00:28 Magnesium Sent. ha1 00:28 Troponin HS Sent. ha1 01:40 Provided Education on: following up with primary care. ha1 01:40 No provider procedures requiring assistance completed. IV discontinued, intact, ha1 bleeding controlled, No redness/swelling at site. Pressure dressing applied. Administered Medications: No medications were administered Medication: 00:43 VIS not applicable for this client. ha1 Outcome: 01:20 Discharge ordered by . rt 01:40 Discharged to home ambulatory, with family. ha1 01:40 Condition: stable 01:40 Discharge instructions given to patient, family, Instructed on discharge instructions, follow up and referral plans. medication usage, Demonstrated understanding of instructions, follow-up care. 01:41 Patient left the ED. ha1 Signatures: Dispatcher [employer] [facility] Edward Bergeron oe Diane Almanza ja2 Ramona Dale RN RN 3 Tanya Chiang, RAMBO RN 1 Nikita Davis MD MD rt Corrections: (The following items were deleted from the chart) 01:35 01:13 Inserted saline lock: 20 gauge in left upper arm, using aseptic technique. Blood oe collected. oe
[2023-05-27 01:51] VITALS: TEMP 97.7
[2023-05-27 02:02] VITALS: O2SAT 98
[2023-05-27 02:08] VITALS: BP 112/70
--- NOTE | 2023-05-27 13:21 | RAD REPORT ---
EXAM DESCRIPTION: RAD - Chest Single View - 05/26/2023 11:55 pm CLINICAL HISTORY: The patient is 52 years old and is Male; palpitation TECHNIQUE: Frontal view of the chest. COMPARISON: No relevant prior studies available. FINDINGS: Lungs: Left basilar atelectasis. No consolidation. Pleural space: Unremarkable. No pneumothorax. Heart: Unremarkable. Mediastinum: Unremarkable. Bones/joints: Postsurgical changes in the cervical spine. IMPRESSION: No acute findings in the chest. Electronically signed by: Ignacio Acosta MD 05/27/2023 12:13 AM CDT Due to temporary technical issues with the PACS/Fluency reporting system, reports are being signed by the in house radiologists without review as a courtesy to insure prompt reporting. The interpreting radiologist is fully responsible for the content of the report.
--- NOTE | 2023-05-28 11:46 | EKG ---
Test Date: 2023-05-26 Test Time: 23:46:55 Executive Secretary: [place] MEASUREMENT RESULTS: Intervals: Rate: 63 MO: 168 QRSD: 118 QT: 394 QTc: 403 [place]: P: -4 MO: 168 QRS: 47 T: 19 INTERPRETIVE STATEMENTS: Normal sinus rhythm Normal ECG Compared to ECG 04/13/2021 14:50:40 Myocardial infarct finding no longer present Electronically Signed On 05-28-23 11:44:03 CDT by Federico Oscar
== END 2023-05-27 01:41 | disposition home or self-care (01) ==
LOC: ER 22:59
DX: R00.2 Palpitations (principal); R42 Dizziness and giddiness; I10 Essential (primary) hypertension
CPT/HCPCS: 36415; 71045; 80048; 80076; 83735; 84443; 84484; 85025; 93005; 99284

== ENCOUNTER 2023-10-29 20:36 | Observation (INO) | payer BC ==
[2023-10-29 21:27] VITALS: BMI 34.3
--- NOTE | 2023-10-29 21:49 | RAD REPORT ---
EXAM DESCRIPTION: RAD - Chest Single View - 10/29/2023 9:43 pm CLINICAL HISTORY: chest pain Chest pain. COMPARISON: Chest Single View dated 05/26/2023; Chest Single View dated 04/13/2021; CHEST SINGLE VIEW d ated 05/14/2012 FINDINGS: Portable technique limits examination quality. The lungs are grossly clear. The heart is normal in size. No displaced fractures. Cervical hardware p late. IMPRESSION: No acute intrathoracic process suspected.
[2023-10-29 22:02] LABS: Absolute Lymphocytes (CBC) 1.2 K/uL (0.7-4.9); Hematocrit 40.5 % (39.6-49.0); Lymphocytes % 18.6 % (15.3-44.8); MPV 8.8 fL (7.6-11.3); Platelets 157 thou/uL (152-406); RBC Red Blood Cell Count 4.66 M/uL (4.33-5.43)
[2023-10-29 22:14] LABS: Bilirubin Total 0.7 mg/dL (0.2-1.0); Magnesium 2.1 mg/dL (1.6-2.4); Potassium 3.9 mEq/L (3.5-5.1); Protein, Total 7.3 g/dL (6.4-8.2); Troponin High Sensitivity 4.6 pg/mL (<58.9)
[2023-10-30] MEDS ORDERED: carvediloL 12.5 MG TAB PO SCH (06:00)
--- NOTE | 2023-10-30 06:40 | HP ---
Date of Admission: 10/29/2023 Chief Complaint: Chest pain. History Of Present Illness: This is a 53 year-old pleasant male patient who came into office today with chest pain in the center and to the left of the sternal area. He has had some chest pain off and on in the past, but in last few days it has gotten worse. He describes having chest pain as tightness type of feeling in the chest and usually associated with either stress or exertion. No other associated symptoms. No relieving factors and pain lasts for some time a few minutes. Denies any nausea, vomiting. No cough, congestion. No shortness of breath. No tingling, numbness of hand and no radiation of pain. He had a stress test done with patient services assistant Dr. Oscar, in June of this year, and it had shown epical and inferior small infarct. After patient was evaluated at office, decision was made to admit him to hospital for further cardiac evaluation. Allergies: NO KNOWN ALLERGIES. Medications: Aspirin 81 mg daily, amlodipine 10 mg daily, carvedilol 12.5 mg 2 times a day. Review of Systems: CARDIOVASCULAR: As mentioned above. All other systems reviewed and negative. Past Medical History: Significant for hypertension, mixed hyperlipidemia, type 2 diabetes which is diet controlled, hyperthyroidism and leukocytopenia. Past Surgical History: Appendectomy and cervical spine surgery in April of 2023. Family History: Father has hyperlipidemia. Mother, coronary artery disease, atrial fibrillation, type 2 diabetes, hypertension and hyperlipidemia. Social History: Negative for smoking. Use of alcohol negative. Physical Examination: Vital Signs: Blood pressure 127/78, pulse 75, temperature 98 degrees Fahrenheit, respiratory rate 16, weight 251.8 pounds. Height 72 inches. General: Awake, alert, oriented, not in distress. HEENT: Head atraumatic, normocephalic. Conjunctivae nonerythematous. Sclerae white. Mouth, no thrush or edema noted. Ears/Nose, no mass, lesion, discharge noted. Neck: Supple. No JVD, lymph nodes, bruit, thyromegaly noted. Lungs: Bilateral good equal air entry. Clear to auscultation. No rhonchi. No rales. Heart: Normal heart sounds, no murmur or gallop. Abdomen: Soft, bowel sounds normal. No guarding, rigidity, tenderness, mass, hepatosplenomegaly, distention, or bruit noted. Extremities: No leg edema. No calf tenderness. Skin: No rash, ulcer, cellulitis. Lymphatics: No lymph node enlargement in neck, supraclavicular, infraclavicular region. Neuro: No focal neurological deficit. Chest: Unremarkable. External Genitalia: Deferred. Rectal: Deferred. Laboratory Data: White count 6.4, hemoglobin 14, platelets 157. Sodium 141, potassium 3.9, chloride 109, bicarb 28, BUN 19, creatinine 1.05, glucose 96. Liver function tests unremarkable. Troponin 4.6. Chest x-ray, no acute cardiopulmonary changes. EKG normal sinus rhythm. No acute ST-T changes. Impression: 1. Unstable angina. 2. Hypertension. 3. Mixed hyperlipidemia. 4. Type 2 diabetes mellitus. 5. History of hyperthyroidism. Plan: We will go ahead and admit the patient to hospital for further evaluation and management of this problem. Considering the patient's increasing problem with chest pain, a decision was made to admit him to the hospital and I did discuss details with the patient's patient services assistant, Dr. Oscar, who will be consulted and details were discussed with him. Dr. Oscar will plan to do cardiac cath tomorrow morning and we will go ahead and keep the patient n.p.o. after midnight. I have discussed details with the patient. We will continue his home medications. Monitor blood pressure, if necessary adjust blood pressure medication. For diabetes, he does not take any medication, does not require any medication and he has done very well controlling it with lifestyle changes and that is diet, exercise and weight loss. For hyperthyroidism, his thyroid function test has been normal lately, which we have monitored on outpatient basis, so no need for further intervention. I will see him tomorrow for followup. ANA CRISTINA/MODL Voice ID: [id number] ALEJANDRO
--- NOTE | 2023-10-30 07:00 | P.CNS ---
Date of Consult: 10/29/23 Reason for Consult: Chest pain Requesting Physician: Prieto Rajput Primary Care Provider: Dr. Rajput Chief Complaint: Chest pain History of Present Illness: Mr. Dennis is a 53 yo with a history of hypertension. He takes coreg and amlodipine. He has been doing well but started to have some chest discomfort for about a week. He had an ECHO and NM stress test in June. 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 Allergies No Known Allergies Allergy (Unverified 10/29/23 23:38) Home medications list reviewed: Yes Home Medications: Amlodipine [Norvasc*] 10 mg PO DAILY 10/30/23 Aspirin [Adult Aspirin Regimen] 81 mg PO DAILY 10/30/23 Carvedilol [Coreg] 12.5 mg PO BID 10/30/23 - Past Medical/Surgical History Diabetic: No -: HTN -: C5-C Cervival fusion - Social History Smoking Status: Never smoker Alcohol use: No CD- Drugs: No Caffeine use: No Place of Residence: Home Review of Systems 10-point ROS is otherwise unremarkable Cardiovascular: Chest Pain, As per HPI Physical Examination Temp Pulse Resp BP Pulse Ox 97.0 F 58 18 112/62 98 10/30/23 04:00 10/30/23 05:28 10/30/23 04:00 10/30/23 04:00 10/30/23 04:00 General: Alert, In no apparent distress, Oriented x3 HEENT: Atraumatic, Normocephalic, PERRLA Neck: Supple, 2+ carotid pulse no bruit, JVD not distended Respiratory: Clear to auscultation bilaterally, Normal air movement Cardiovascular: No edema, Normal pulses, Regular rate/rhythm Capillary refill: <2 Seconds Gastrointestinal: Normal bowel sounds, Soft and benign Musculoskeletal: No clubbing Integumentary: No rashes Neurological: Normal gait, Normal speech, Normal tone Lymphatics: No axilla or inguinal lymphadenopathy External genitalia: Deferred Rectal: Deferred Laboratory Data (last 24 hrs) 10/29/23 10/29/23 21:03 21:03 WBC 6.40 Hgb 14.0 Hct 40.5 Plt Count 157 Sodium 141 Potassium 3.9 BUN 19 H Creatinine 1.05 Glucose 96 Magnesium 2.1 Total Bilirubin 0.7 AST 13 L ALT 25 Alkaline Phosphatase 72 - Problems (1) Chest pain Current Visit: Yes Status: Acute Plan: Monitor vital signs, trend troponins, will take to labourers today (2) Hypertension Current Visit: Yes Status: Acute Plan: Continue carvedilol, amlodipine, and aspirin, monitor vital signs
[2023-10-30] MEDS ORDERED: AMLODIPINE 10 MG TAB PO SCH (09:00)
[2023-10-30] MEDS ORDERED: ASPIRIN EC 81 MG TAB PO SCH (09:00)
[2023-10-30] MEDS ORDERED: INFLUENZA VACCINE (for 6+ mo) 0.5 ML DOSE IMVAC ONE (11:00)
--- NOTE | 2023-10-30 11:47 | EKG ---
Test Date: 2023-10-29 Test Time: 22:05:57 Lab Instructor: SYLVIA MEASUREMENT RESULTS: Intervals: Rate: 60 [place]: 138 QRSD: 116 QT: 394 QTc: 394 [place]: P: 39 [place]: 138 QRS: 56 T: 22 INTERPRETIVE STATEMENTS: Normal sinus rhythm Normal ECG Compared to ECG 05/26/2023 23:46:55 No significant changes Electronically Signed On 10-30-23 11:45:58 RIGGING ENGINEER by Federico Oscar
[2023-10-30] MEDS ORDERED: NA CHLORIDE 0.9% 500 ML ONE (12:20)
[2023-10-30] MEDS ORDERED: HEPA 1000U/500MLS 2,000 UNIT/1,000 ML BAG IV ONE (12:22)
[2023-10-30] MEDS ORDERED: LIDOCAINE 1% 20 ML MDV ONE (12:22)
[2023-10-30] MEDS ORDERED: VERAPAMIL HCL 10 MG/4 ML VIAL IV ONE (12:37)
[2023-10-30] MEDS ORDERED: FENTANYL CITR 100 MCG/2 ML ONE (12:37)
[2023-10-30] MEDS ORDERED: ATROPINE SULF 1 MG/10 ML SYR IV ONE (12:38)
[2023-10-30] MEDS ORDERED: HEPARIN 5000 UNIT/ML 1 ML VIAL ONE (12:38)
[2023-10-30] MEDS ORDERED: MIDAZOLAM HCL 2 MG/2 ML INJ ONE (12:38)
[2023-10-30] MEDS ORDERED: TICAGRELOR 90 MG TABLET PO ONE (12:38)
[2023-10-30] MEDS ORDERED: HEPARIN 10,000 UNIT/10 ML VIAL IV ONE (12:38)
[2023-10-30] MEDS ORDERED: CLOPIDOGREL 75 MG TABLET ONE (12:39)
[2023-10-30 14:47] VITALS: O2SAT 95
[2023-10-30 16:17] VITALS: BP 123/69; TEMP 97.9
--- NOTE | 2023-10-30 18:17 | OP ---
Date of Procedure: 10/30/2023 Surgeon: ANAND BATISTA Procedures Performed: 1.Selective coronary angiogram. 2.Left heart catheterization. Indication: Unstable angina. Access: Right radial artery, 6-Somali, closed with TR band. Complications: None. Bleeding: Less than 20 mL. Anesthesia: Total sedation time is 0. Patient's blood pressure was low. We did not give any sedati on. Description Of Procedure: After risks, benefits, and alternatives were explained, patient agreed to procedure and signed informed consent. Patient was brought into cardiac catheterization laboratory, prepped and draped in the usual sterile fashion. Then I accessed right radial artery using pediatric micropuncture kit, placed a 6-Somali Slender sheath and took 5-Somali [place] 4.0 catheter into the ao rtic root across the aortic valve and measured the LVEDP and pullback did not record any gradient. I then engaged the RCA, took standard views and then the left main and took standard views and then re moved the catheter and the sheath, placed TR band with good hemostasis. Findings: 1.Left main; large and normal. 2.LAD; proximal is normal. Mid after the septal takeoff, there is 30% stenosis. Rest of the LAD is normal. Normal diagonal branches. 3.Left circumflex; that is moderate in size, codominant and normal. 4.RCA; moderate in size and codominant and normal. 5.LVEDP slightly elevated at 15 mmHg. Conclusion: 1.Mild nonobstructive coronary artery disease. 2.Mildly elevated LVEDP. Recommendation: Medical management. SR/MODL Voice ID: [id number] Report ID: [id number]
--- NOTE | 2023-10-31 06:44 | DS ---
Date of Discharge: 10/30/2023 Disposition: Discharged to go home. Physical Examination: HEENT: Unremarkable. Lungs: Clear to auscultation. Heart: Sounds normal. Abdomen: Soft. Bowel sounds normal. No guarding, rigidity, tenderness, distention. Extremities: No leg edema. Laboratory Data: Today, total cholesterol 144, LDL 91, HDL 35, triglycerides 99.0. Yesterday's labs done upon admission reviewed. Hospital Course: A 53-year-old pleasant male patient admitted to the hospital with chest pain complaints. Please see dictated H and P for more information. After patient was evaluated, he was admitted to the hospital for further management of this problem. Cardiology consultation was obtained from Dr. Oscar. His troponin level was normal. On outpatient basis, he had abnormal stress test done in June of this year showing small apical and inferior infarct. With this, Dr. Oscar recommended cardiac cath and he did that procedure today, and after the procedure, he called to discuss details of findings with me, coronary angiogram showed about 30% stenosis of proximal LAD, no interventioin required, and he released patient to go home from Cardiology point of view. Medically, the patient was stable for discharge. The patient did not require any cardiac intervention. Discharge Medications And Instructions: 1. Continue all prior home medications. 2. Follow up at my office per scheduled appointment. 3. The patient was instructed not to lift anything heavier than a glass of water using the arm which was used for angiogram today for next 1 week. Final Diagnoses: 1. Coronary artery disease. 2. Unstable angina. 3. Hypertension. 4. Hyperlipidemia. 5. Type 2 diabetes mellitus. ANA CRISTINA/MODL Voice ID: [id number] Report ID: [id number] ALEJANDRO
== END 2023-10-30 16:49 | disposition home or self-care (01) ==
LOC: 4TH 20:36
PROVIDERS: ADMIT Internal Medicine; ATTEND Internal Medicine
PROC: 4A023N7 Measurement of Cardiac Sampling and Pressure, Left Heart, Percutaneous Approach (ICD-10-PCS; principal; 2023-10-30)
PROC: B2111ZZ Fluoroscopy of Multiple Coronary Arteries using Low Osmolar Contrast (ICD-10-PCS; 2023-10-30)
DX: I25.110 Atherosclerotic heart disease of native coronary artery with unstable angina pectoris (principal); I10 Essential (primary) hypertension; E11.9 Type 2 diabetes mellitus without complications; E78.2 Mixed hyperlipidemia; Z79.82 Long term (current) use of aspirin; Z79.899 Other long term (current) drug therapy; E05.90 Thyrotoxicosis, unspecified without thyrotoxic crisis or storm; D72.819 Decreased white blood cell count, unspecified; Z82.49 Family history of ischemic heart disease and other diseases of the circulatory system; Z83.3 Family history of diabetes mellitus
CPT/HCPCS: 93005; 85025; 36415; 83735; 80061; 84484; 80053; 71045; 93458; 76937; C1893; Q9966; J1644; J2001; G0378 ×4; J7040; J0461; J2250; J3010